=== PATIENT | male | born 1935 | race Caucasian/White ===

== ENCOUNTER 2021-07-12 21:41 | Inpatient (IN) | payer MEDICARE ==
[~2021-07-12] VITALS: Ht 182.9 cm; Wt 68.2 kg
[2021-07-12] MEDS ORDERED: acetaminophen 325mg tablet PO ONE (22:15)
[2021-07-12] MEDS ORDERED: normal saline 1000ml 1,000 ML IV ONE (22:15)
[2021-07-12] MEDS ORDERED: CefTRIAXone/D5W-Rocephin 1gm 50 ML IV ONE (22:15)
[2021-07-12] MEDS ORDERED: iohexol 300mg/ml 100ml inj. ONE (22:19)
[2021-07-12 23:03] LABS: BASOPHILS # (AUTO) 0.1 X10'3 (0-0.2); BASOPHILS % (AUTO) 0.5 % (0-1); EOSINOPHILS % (AUTO) 0 % (0-6); HEMOGLOBIN 12.7 g/dl (14.0-17.9); LYMPHOCYTES # (AUTO) 0.8 X10'3 (1.1-4.8); LYMPHOCYTES % (AUTO) 4.8 % (21-51); MEAN CORPUSCULAR HEMOGLOBIN 31.2 PG (27.0-31.0); MEAN CORPUSCULAR HGB CONC 33.3 g/dL (33.0-36.5); MEAN CORPUSCULAR VOLUME 93.8 FL (78-98); MEAN PLATELET VOLUME 9.2 FL (7.4-10.4); MONOCYTES % (AUTO) 5.5 % (2-12); NEUTROPHILS # (AUTO) 15.6 X10'3 (1.8-7.7); NEUTROPHILS % (AUTO) 89.2 % (42-75); PLATELET COUNT 220 X10'3 (140-440); RED BLOOD COUNT 4.06 X10'6 (4.70-6.10); WHITE BLOOD COUNT 17.5 X10'3 (4.5-11.0)
[2021-07-12 23:24] LABS: ALANINE AMINOTRANSFERASE 33 U/L (12-78); ALBUMIN 3.6 G/DL (3.4-5.0); ALBUMIN/GLOBULIN RATIO 0.9 (1.1-1.5); ALKALINE PHOSPHATASE 84 IU/L (46-116); ANION GAP 7 (8-16); ASPARTATE AMINO TRANSFERASE 20 U/L (10-37); BILIRUBIN,TOTAL 0.5 MG/DL (0.1-1.0); BLOOD UREA NITROGEN 27 MG/DL (7-18); BUN/CREATININE RATIO 24.5 (5.4-32.0); CALCIUM 10.4 MG/DL (8.5-10.1); CHLORIDE 104 MMOL/L (99-107); GLUCOSE 152 MG/DL (70-104); MAGNESIUM 2.4 MG/DL (1.5-2.4); POTASSIUM 4.3 MMOL/L (3.5-5.1); SODIUM 141 MMOL/L (135-145); TOTAL CARBON DIOXIDE 29.6 MMOL/L (24-32); TOTAL PROTEIN 7.8 G/DL (6.4-8.2); eGFR 64 ML/MIN
[2021-07-12 23:24] LABS: CLARITY,URINE SLIGHTLY CLOUDY (Clear); COLOR,URINE YELLOW (Yellow); PH,URINE 6.5 (4.8-8.0); UA COLLECTION TYPE FOLEY CATH
[2021-07-12 23:25] LABS: GLUCOSE, URINE NEGATIVE (Neg); KETONES,URINE NEGATIVE (Neg); OCCULT BLOOD,URINE MODERATE (Neg); PROTEIN,URINE NEGATIVE (Neg); UROBILINOGEN,URINE 0.2 E.U/dL (0.2-1.0)
[2021-07-12 23:26] LABS: BACTERIA,URINE 1+ /HPF (Neg); LEUKOCYTE ESTERASE ,URINE TRACE (Neg); NITRITES, URINE NEGATIVE (Neg); RBC,URINE 0-2 /HPF (0-2); SQUAMOUS EPITHELIAL CELL,UR FEW /LPF (FEW)
[2021-07-13] MEDS ORDERED: bisacodyl 10mg suppository rectal RC PRN (02:55)
[2021-07-13] MEDS ORDERED: diphenhydrAMINE 50 mg/ml inj IV PRN (02:55)
[2021-07-13] MEDS ORDERED: ondansetron/PF 4mg/2ml inj IV PRN (02:55)
[2021-07-13] MEDS: normal saline 1000ml 1,000 ML IV SCH ×2 (02:55→20:07)
[2021-07-13] MEDS ORDERED: magnesium hydroxide 30ml (MOM) UD suspension PO PRN (02:55)
[2021-07-13] MEDS ORDERED: HYDROcodone/acetaminophen 5mg/325mg tablet PO PRN (02:55)
[2021-07-13] MEDS ORDERED: ondansetron 4mg rapidly disintigrating tab PO PRN (02:55)
[2021-07-13] MEDS ORDERED: acetaminophen 325mg tablet PO PRN ×2 (02:55)
[2021-07-13] MEDS ORDERED: mag hydrox/Alum hydrox/simeth 30ml oral suspension PO PRN (02:55)
[2021-07-13] MEDS ORDERED: diphenhydrAMINE 25mg capsule PO PRN (02:55)
[2021-07-13] MEDS ORDERED: morphine 2 MG/ML inj. syringe IV PRN (02:55)
[2021-07-13] MEDS ORDERED: ALBUTEROL INHALER 1 PUFF/90 MCG INHALER IH PRN (03:00)
--- NOTE | 2021-07-13 03:38 | NUR ---
Patient appears to have dementia and does not answer question, but will verbally protest if uncomfortable. Pt unable to participate in his assessment and history.
[2021-07-13 05:10] LABS: HEMOGLOBIN A1C 6.2 % (4.5-6.2)
[2021-07-13 05:34] LABS: CREATINE KINASE 72 U/L (39-308); LIPASE 88 U/L (73-393); PHOSPHORUS 2.9 MG/DL (2.3-4.5)
--- NOTE | 2021-07-13 07:29 | NUR ---
SERGIO COE (SON) [phone]
[2021-07-13] MEDS ORDERED: dexamethasone 4mg/ml inj IV SCH ×2 (08:00→20:00)
--- NOTE | 2021-07-13 08:31 | NUR ---
RECEIVED REPORT FROM SUSAN SANCHEZ
[2021-07-13 08:35] LABS: PARTIAL THROMBOPLASTIN TIME 28 SECONDS (22-32)
[2021-07-13 09:23] VITALS: BP 123/69
[2021-07-13] MEDS: pantoprazole 40mg Tablet.DR PO SCH (09:31)
[2021-07-13] MEDS: docusate sod 100mg capsule PO SCH ×2 (09:31→23:06)
[2021-07-13] MEDS: enoxaparin 40mg/0.4ml syringe SUBCUT SCH (09:37)
--- NOTE | 2021-07-13 09:42 | NUR ---
SCANNER ON COMPUTER NOT SCANNING MEDS INTO [place], CHECKED ALL MEDS PRIOR TO ADMIN
[2021-07-13] MEDS: azithromycin/NS 500mg/250ml 250 ML IV SCH (10:46)
--- NOTE | 2021-07-13 10:50 | NUR ---
SCANNER ON COMPUTER NOT SCANNING MEDS INTO Utan AT THIS TIME, CHECKED MED PRIOR TO ADMIN
[2021-07-13] MEDS ORDERED: magnesium Cl slow-release 64mg tablet PO PRN (11:05)
[2021-07-13] MEDS ORDERED: potassium Cl 40MEQ/1/2NS 520ml 520 ML IV PRN (11:05)
[2021-07-13] MEDS ORDERED: magnesium 4gm in 100ml NS 100 ML IV PRN (11:05)
[2021-07-13] MEDS ORDERED: potassium Cl 20 mEq SR tablet PO PRN ×2 (11:05)
[2021-07-13] MEDS ORDERED: NO HOME MEDS (11:59)
[2021-07-13 14:00] VITALS: BP 115/60
--- NOTE | 2021-07-13 15:43 | NUR ---
pt just woke up and started talking, pt is very confused and trying to climb out to bed, pt near nursing station, continue frequent rounding
--- NOTE | 2021-07-13 18:27 | NUR ---
gave report november,
[2021-07-13 18:30] VITALS: BP 108/75
[2021-07-13] MEDS: K and/or MAG REPLACEMENT MC SCH (20:00)
[2021-07-13 22:00] VITALS: BP 97/55
[2021-07-13] MEDS: dexamethasone 6 MG in D5W 100ml IV soln IV SCH (22:58)
[2021-07-13] MEDS: lactobacillus rhamnosus 10,000 MMU CELLS/CAPSULE PO SCH (23:06)
[2021-07-13] MEDS: CefTRIAXone/D5W-Rocephin 1gm 50 ML IV SCH (23:21)
[2021-07-14 02:00] VITALS: BP 114/68
[2021-07-14 06:00] VITALS: BP 91/49
[2021-07-14 07:06] LABS: BASOPHILS % (AUTO) 0.1 % (0-1); EOSINOPHILS % (AUTO) 0 % (0-6); HEMATOCRIT 35.5 % (42.0-52.0); HEMOGLOBIN 11.9 g/dl (14.0-17.9); LYMPHOCYTES # (AUTO) 0.9 X10'3 (1.1-4.8); LYMPHOCYTES % (AUTO) 8.6 % (21-51); MEAN CORPUSCULAR HEMOGLOBIN 31.6 PG (27.0-31.0); MEAN CORPUSCULAR HGB CONC 33.6 g/dL (33.0-36.5); MEAN CORPUSCULAR VOLUME 94.1 FL (78-98); MEAN PLATELET VOLUME 9.1 FL (7.4-10.4); MONOCYTES # (AUTO) 0.2 X10'3 (0-0.9); NEUTROPHILS # (AUTO) 9.7 X10'3 (1.8-7.7); NEUTROPHILS % (AUTO) 89.3 % (42-75); PLATELET COUNT 213 X10'3 (140-440); RED BLOOD COUNT 3.77 X10'6 (4.70-6.10); RED CELL DISTRIBUTION WIDTH 17.2 % (11.5-14.5); WHITE BLOOD COUNT 10.9 X10'3 (4.5-11.0)
[2021-07-14 07:21] LABS: D-DIMER 0.54 MG/L FEU (0-0.50)
[2021-07-14] MEDS: K and/or MAG REPLACEMENT MC SCH ×2 (08:00→19:10)
[2021-07-14 08:01] LABS: ALANINE AMINOTRANSFERASE 17 U/L (12-78); ALBUMIN 2.5 G/DL (3.4-5.0); ALBUMIN/GLOBULIN RATIO 0.6 (1.1-1.5); ALKALINE PHOSPHATASE 68 IU/L (46-116); ANION GAP 8 (8-16); ASPARTATE AMINO TRANSFERASE 15 U/L (10-37); BILIRUBIN,TOTAL 0.4 MG/DL (0.1-1.0); BLOOD UREA NITROGEN 16 MG/DL (7-18); BUN/CREATININE RATIO 20.5 (5.4-32.0); C-REACTIVE PROTEIN 7.13 MG/DL (0.0-0.5); CALCIUM 9.2 MG/DL (8.5-10.1); CHLORIDE 108 MMOL/L (99-107); CHOLESTEROL 157 MG/DL (0-200); CREATININE 0.78 MG/DL (0.60-1.10); GLUCOSE 164 MG/DL (70-104); HDL CHOLESTEROL 55 MG/DL (35-60); LACTATE DEHYDROGENASE 157 U/L (85-227); MAGNESIUM 2.1 MG/DL (1.5-2.4); PHOSPHORUS 2.7 MG/DL (2.3-4.5); POTASSIUM 4.4 MMOL/L (3.5-5.1); SODIUM 143 MMOL/L (135-145); TOTAL CARBON DIOXIDE 27.4 MMOL/L (24-32); TOTAL PROTEIN 6.4 G/DL (6.4-8.2); eGFR > 90 ML/MIN
[2021-07-14 08:02] LABS: CHOL/HDL RATIO 2.9 (0.00-4.99); LDL CHOLESTEROL 74 MG/DL (50-100); TRIGLYCERIDES 68 MG/DL (20-135)
--- NOTE | 2021-07-14 08:57 | NUR ---
Jose Alberto consult: Noted score of 12, no open wounds or edema noted. Will continue to monitor. Addendum: 07/14/21 at [address] Amended: Links added.
[2021-07-14] MEDS: lactobacillus rhamnosus 10,000 MMU CELLS/CAPSULE PO SCH ×2 (10:38→19:10)
[2021-07-14] MEDS: docusate sod 100mg capsule PO SCH ×2 (10:38→19:10)
[2021-07-14] MEDS: pantoprazole 40mg Tablet.DR PO SCH (10:38)
[2021-07-14] MEDS: dexamethasone 6 MG in D5W 100ml IV soln IV SCH ×2 (10:39→19:10)
[2021-07-14 11:00] VITALS: BP 96/36
[2021-07-14] MEDS: enoxaparin 40mg/0.4ml syringe SUBCUT SCH (11:04)
[2021-07-14] MEDS: azithromycin/NS 500mg/250ml 250 ML IV SCH (11:08)
--- NOTE | 2021-07-14 12:43 | NUR ---
Page Sent PAGER ID: [phone] MESSAGE: LETI [id number]: [id number] YONATHAN CLAUDIO...PT 24HR TELE UP, PT IN NSR, DO YOU WANT TO DC OR CONTINUE TELE?
[2021-07-14 18:00] VITALS: BP 137/95
--- NOTE | 2021-07-14 18:38 | NUR ---
Problems reprioritized. Patient report given, questions answered & plan of care reviewed with SUSAN Duran.
[2021-07-14] MEDS: CefTRIAXone/D5W-Rocephin 1gm 50 ML IV SCH (21:51)
[2021-07-14 22:00] VITALS: BP 149/92
[2021-07-15 02:00] VITALS: BP 156/76
[2021-07-15 06:10] VITALS: BP 134/77
--- NOTE | 2021-07-15 06:30 | NUR ---
Patient in room [facility] 4020. I have received report from Roger DAVIS and had the opportunity to ask questions and assume patient care.
[2021-07-15 07:06] LABS: BASOPHILS % (AUTO) 0.1 % (0-1); EOSINOPHILS % (AUTO) 0 % (0-6); HEMATOCRIT 37.3 % (42.0-52.0); HEMOGLOBIN 12.7 g/dl (14.0-17.9); LYMPHOCYTES # (AUTO) 0.9 X10'3 (1.1-4.8); LYMPHOCYTES % (AUTO) 9.6 % (21-51); MEAN CORPUSCULAR HEMOGLOBIN 31.6 PG (27.0-31.0); MEAN PLATELET VOLUME 9.2 FL (7.4-10.4); MONOCYTES # (AUTO) 0.6 X10'3 (0-0.9); MONOCYTES % (AUTO) 5.9 % (2-12); NEUTROPHILS # (AUTO) 8.1 X10'3 (1.8-7.7); NEUTROPHILS % (AUTO) 84.4 % (42-75); PLATELET COUNT 236 X10'3 (140-440); RED BLOOD COUNT 4.01 X10'6 (4.70-6.10); RED CELL DISTRIBUTION WIDTH 16.7 % (11.5-14.5); WHITE BLOOD COUNT 9.6 X10'3 (4.5-11.0)
[2021-07-15 07:12] LABS: D-DIMER 0.48 MG/L FEU (0-0.50)
[2021-07-15 07:18] LABS: ALANINE AMINOTRANSFERASE 24 U/L (12-78); ALBUMIN 2.7 G/DL (3.4-5.0); ALBUMIN/GLOBULIN RATIO 0.7 (1.1-1.5); ALKALINE PHOSPHATASE 69 IU/L (46-116); ANION GAP 6 (8-16); ASPARTATE AMINO TRANSFERASE 19 U/L (10-37); BILIRUBIN,TOTAL 0.3 MG/DL (0.1-1.0); BLOOD UREA NITROGEN 20 MG/DL (7-18); C-REACTIVE PROTEIN 3.45 MG/DL (0.0-0.5); CALCIUM 9.7 MG/DL (8.5-10.1); CHLORIDE 107 MMOL/L (99-107); CREATININE 0.77 MG/DL (0.60-1.10); GLUCOSE 141 MG/DL (70-104); LACTATE DEHYDROGENASE 159 U/L (85-227); MAGNESIUM 2.3 MG/DL (1.5-2.4); PHOSPHORUS 3.1 MG/DL (2.3-4.5); SODIUM 139 MMOL/L (135-145); TOTAL CARBON DIOXIDE 25.9 MMOL/L (24-32); TOTAL PROTEIN 6.7 G/DL (6.4-8.2); eGFR > 90 ML/MIN
--- NOTE | 2021-07-15 07:30 | NUR ---
Patient report given to Beck DAVIS
[2021-07-15] MEDS: dexamethasone 6 MG in D5W 100ml IV soln IV SCH (08:14)
[2021-07-15] MEDS: azithromycin/NS 500mg/250ml 250 ML IV SCH (08:14)
[2021-07-15] MEDS: lactobacillus rhamnosus 10,000 MMU CELLS/CAPSULE PO SCH (08:14)
[2021-07-15] MEDS: enoxaparin 40mg/0.4ml syringe SUBCUT SCH (08:14)
[2021-07-15] MEDS: pantoprazole 40mg Tablet.DR PO SCH (08:15)
[2021-07-15] MEDS: K and/or MAG REPLACEMENT MC SCH (08:15)
[2021-07-15] MEDS: docusate sod 100mg capsule PO SCH (08:16)
[2021-07-15] MEDS ORDERED: LORazepam 2 mg/ml vial IV PRN (08:30)
[2021-07-15 09:56] LABS: % FREE PSA 15.3 % (.); PSA, FREE 3.06 ng/mL
[2021-07-15 10:00] VITALS: BP 107/56
[2021-07-15] MEDS ORDERED: ASPI-1265 PO (15:29)
[2021-07-15] MEDS ORDERED: PANT40TA54 PO (15:29)
[2021-07-15] MEDS ORDERED: DEXA6TAB PO (15:29)
[2021-07-15] MEDS ORDERED: ALBU8.5H17 INH (15:29)
[2021-07-15] MEDS ORDERED: CEFD300C3 PO (15:29)
[2021-07-15] MEDS ORDERED: LACT1CAP26 PO (15:29)
== END 2021-07-15 18:10 | disposition home or self-care (01) | DRG 177 ==
LOC: ER 21:41 → ED HOLD 07-13 02:57 → EDBEDREQ 07-13 05:30 → ORTHO 4S 07-13 08:55
PROVIDERS: ADMIT Family Medicine; ATTEND Family Medicine
PROC: BW211ZZ Computerized Tomography (CT Scan) of Abdomen and Pelvis using Low Osmolar Contrast (ICD-10-PCS; principal; 2021-07-13)
DX: U07.1 COVID-19 (principal); J12.82 Pneumonia due to coronavirus disease 2019; G93.41 Metabolic encephalopathy; J44.0 Chronic obstructive pulmonary disease with (acute) lower respiratory infection; J44.1 Chronic obstructive pulmonary disease with (acute) exacerbation; K56.7 Ileus, unspecified; N39.0 Urinary tract infection, site not specified; F03.90 Unspecified dementia, unspecified severity, without behavioral disturbance, psychotic disturbance, mood disturbance, and anxiety; I10 Essential (primary) hypertension; N40.1 Benign prostatic hyperplasia with lower urinary tract symptoms; R32 Unspecified urinary incontinence; R33.8 Other retention of urine
CPT/HCPCS: 36415; 70450; 71045; 73030; 74177; 80053; 80061; 81001; 82550; 83036; 83605; 83615; 83690; 83735; 83880; 84100; 84145; 84153; 84154; 84443; 84484; 85025; 85379; 85610; 85730; 86140; 87040; 87077; 87081; 87088; 87186; 87635; 92508; 92616; 93005; 99285; C9803; G0378; J0456; J0696; J1100; J1650; J7030; J7060; Q9967

== ENCOUNTER 2021-07-17 04:15 | Emergency (ER) | payer MEDICARE ==
[~2021-07-17] VITALS: Ht 167.6 cm; Wt 68.0 kg
[~2021-07-17 04:15] MED LIST: ALBU8.5H17 INH; ASPI-1265 PO; CEFD300C3 PO; DEXA6TAB PO; LACT1CAP26 PO; PANT40TA54 PO
[2021-07-17 04:42] VITALS: BP 134/84
[2021-07-17] MEDS ORDERED: LIDOcaine 2% 10ml TOPICAL JELLY (Urojet) TP ONE (05:35)
[2021-07-17] MEDS ORDERED: CEFD300C3 PO (06:01)
[2021-07-17] MEDS ORDERED: FLO0.4C PO (06:01)
[2021-07-17 07:12] LABS: BASOPHILS % (AUTO) 0.5 % (0-1); EOSINOPHILS % (AUTO) 0.4 % (0-6); HEMATOCRIT 39.8 % (42.0-52.0); HEMOGLOBIN 13.3 g/dl (14.0-17.9); LYMPHOCYTES # (AUTO) 1.2 X10'3 (1.1-4.8); LYMPHOCYTES % (AUTO) 15.7 % (21-51); MEAN CORPUSCULAR HEMOGLOBIN 31.6 PG (27.0-31.0); MEAN CORPUSCULAR HGB CONC 33.5 g/dL (33.0-36.5); MEAN CORPUSCULAR VOLUME 94.5 FL (78-98); MEAN PLATELET VOLUME 8.7 FL (7.4-10.4); MONOCYTES # (AUTO) 0.6 X10'3 (0-0.9); MONOCYTES % (AUTO) 8.8 % (2-12); NEUTROPHILS # (AUTO) 5.5 X10'3 (1.8-7.7); NEUTROPHILS % (AUTO) 74.6 % (42-75); PLATELET COUNT 246 X10'3 (140-440); RED BLOOD COUNT 4.21 X10'6 (4.70-6.10); RED CELL DISTRIBUTION WIDTH 16.9 % (11.5-14.5); WHITE BLOOD COUNT 7.3 X10'3 (4.5-11.0)
[2021-07-17 07:27] LABS: ALANINE AMINOTRANSFERASE 37 U/L (12-78); ALBUMIN 3.3 G/DL (3.4-5.0); ALBUMIN/GLOBULIN RATIO 0.8 (1.1-1.5); ALKALINE PHOSPHATASE 83 IU/L (46-116); ANION GAP 9 (8-16); ASPARTATE AMINO TRANSFERASE 18 U/L (10-37); BILIRUBIN,TOTAL 0.5 MG/DL (0.1-1.0); BLOOD UREA NITROGEN 24 MG/DL (7-18); BUN/CREATININE RATIO 28.2 (5.4-32.0); CALCIUM 9.7 MG/DL (8.5-10.1); CHLORIDE 104 MMOL/L (99-107); CREATININE 0.85 MG/DL (0.60-1.10); GLUCOSE 122 MG/DL (70-104); LIPASE 145 U/L (73-393); POTASSIUM 3.8 MMOL/L (3.5-5.1); SODIUM 140 MMOL/L (135-145); TOTAL CARBON DIOXIDE 27.3 MMOL/L (24-32); TOTAL PROTEIN 7.3 G/DL (6.4-8.2); eGFR 86 ML/MIN
[2021-07-17 07:44] LABS: CLARITY,URINE CLEAR (Clear); COLOR,URINE YELLOW (Yellow); GLUCOSE, URINE NEGATIVE (Neg); KETONES,URINE NEGATIVE (Neg); LEUKOCYTE ESTERASE ,URINE NEGATIVE (Neg); NITRITES, URINE NEGATIVE (Neg); OCCULT BLOOD,URINE NEGATIVE (Neg); PROTEIN,URINE NEGATIVE (Neg); UA COLLECTION TYPE FOLEY CATH; UROBILINOGEN,URINE 0.2 E.U/dL (0.2-1.0)
--- NOTE | 2021-07-17 08:40 | NUR ---
pt cleaned from .
== END 2021-07-17 09:13 | disposition home or self-care (01) ==
LOC: ER 04:15
DX: U07.1 COVID-19 (principal); R33.9 Retention of urine, unspecified; N39.0 Urinary tract infection, site not specified; R10.84 Generalized abdominal pain; Z79.82 Long term (current) use of aspirin; Z79.899 Other long term (current) drug therapy
CPT/HCPCS: 36415; 51702; 80053; 81003; 83690; 85025; 99284

== ENCOUNTER 2021-07-22 20:14 | Emergency (ER) | payer MEDICARE ==
[~2021-07-22] VITALS: Ht 182.9 cm; Wt 65.0 kg
[~2021-07-22 20:14] MED LIST changes: +FLO0.4C PO
[2021-07-22] MEDS: LIDOcaine 2% 10ml TOPICAL JELLY (Urojet) TP ONE (20:45)
[2021-07-22 21:28] LABS: BASOPHILS % (AUTO) 0.5 % (0-1); EOSINOPHILS # (AUTO) 0.1 X10'3 (0-0.9); EOSINOPHILS % (AUTO) 1.5 % (0-6); HEMATOCRIT 35.2 % (42.0-52.0); LYMPHOCYTES # (AUTO) 1.5 X10'3 (1.1-4.8); LYMPHOCYTES % (AUTO) 20.7 % (21-51); MEAN CORPUSCULAR HGB CONC 33.9 g/dL (33.0-36.5); MEAN CORPUSCULAR VOLUME 94.2 FL (78-98); MEAN PLATELET VOLUME 8.7 FL (7.4-10.4); MONOCYTES # (AUTO) 0.7 X10'3 (0-0.9); NEUTROPHILS # (AUTO) 4.8 X10'3 (1.8-7.7); NEUTROPHILS % (AUTO) 67.3 % (42-75); PLATELET COUNT 274 X10'3 (140-440); RED BLOOD COUNT 3.74 X10'6 (4.70-6.10); RED CELL DISTRIBUTION WIDTH 16.8 % (11.5-14.5); WHITE BLOOD COUNT 7.1 X10'3 (4.5-11.0)
[2021-07-22 21:40] LABS: COLOR,URINE YELLOW (Yellow); GLUCOSE, URINE NEGATIVE (Neg); KETONES,URINE NEGATIVE (Neg); LEUKOCYTE ESTERASE ,URINE NEGATIVE (Neg); NITRITES, URINE NEGATIVE (Neg); PROTEIN,URINE NEGATIVE (Neg); UA COLLECTION TYPE FOLEY CATH; UROBILINOGEN,URINE 0.2 E.U/dL (0.2-1.0)
[2021-07-22 21:41] LABS: CLARITY,URINE SLIGHTLY CLOUDY (Clear)
[2021-07-22 21:43] LABS: OCCULT BLOOD,URINE TRACE-INTACT (Neg)
[2021-07-22 21:44] LABS: ALANINE AMINOTRANSFERASE 31 U/L (12-78); ALBUMIN 2.9 G/DL (3.4-5.0); ALBUMIN/GLOBULIN RATIO 0.8 (1.1-1.5); ALKALINE PHOSPHATASE 74 IU/L (46-116); ANION GAP 4 (8-16); ASPARTATE AMINO TRANSFERASE 15 U/L (10-37); BILIRUBIN,TOTAL 0.2 MG/DL (0.1-1.0); BLOOD UREA NITROGEN 25 MG/DL (7-18); BUN/CREATININE RATIO 23.6 (5.4-32.0); CALCIUM 9.9 MG/DL (8.5-10.1); CHLORIDE 105 MMOL/L (99-107); CREATININE 1.06 MG/DL (0.60-1.10); GLUCOSE 142 MG/DL (70-104); POTASSIUM 4.9 MMOL/L (3.5-5.1); SODIUM 140 MMOL/L (135-145); TOTAL CARBON DIOXIDE 30.6 MMOL/L (24-32); TOTAL PROTEIN 6.5 G/DL (6.4-8.2); eGFR 66 ML/MIN
[2021-07-22 21:44] LABS: RBC,URINE 20-50 /HPF (0-2)
[2021-07-22 21:45] LABS: BACTERIA,URINE 1+ /HPF (Neg); CAL OXALATE CRYSTALS 2+ /HPF (NEGATIVE); SQUAMOUS EPITHELIAL CELL,UR FEW /LPF (FEW)
[2021-07-23 00:23] VITALS: BP 134/83
== END 2021-07-23 00:17 | disposition home or self-care (01) ==
LOC: ER 20:15
DX: R33.9 Retention of urine, unspecified (principal); R14.0 Abdominal distension (gaseous); R10.30 Lower abdominal pain, unspecified; F03.91 Unspecified dementia, unspecified severity, with behavioral disturbance; Z79.82 Long term (current) use of aspirin; Z79.899 Other long term (current) drug therapy; Z86.16 Personal history of COVID-19; Z87.440 Personal history of urinary (tract) infections
CPT/HCPCS: 36415; 51702; 80053; 81001; 85025; 87088; 99284

== ENCOUNTER 2021-09-22 10:58 | Emergency (ER) | payer MEDICARE ==
[~2021-09-22] VITALS: Ht 167.6 cm; Wt 50.0 kg
[~2021-09-22 10:58] MED LIST changes: -ASPI-1265 PO; -CEFD300C3 PO; -DEXA6TAB PO; -FLO0.4C PO; -LACT1CAP26 PO; +LEVO500T90 PO; +PANT-47 PO; -PANT40TA54 PO
[2021-09-22 11:11] VITALS: BP 113/63
[2021-09-22 11:43] LABS: BASOPHILS # (AUTO) 0.1 X10'3 (0-0.2); BASOPHILS % (AUTO) 0.8 % (0-1); EOSINOPHILS # (AUTO) 0.2 X10'3 (0-0.9); EOSINOPHILS % (AUTO) 2.3 % (0-6); HEMATOCRIT 37.8 % (42.0-52.0); HEMOGLOBIN 12.7 g/dl (14.0-17.9); LYMPHOCYTES # (AUTO) 1.6 X10'3 (1.1-4.8); LYMPHOCYTES % (AUTO) 23.2 % (21-51); MEAN CORPUSCULAR HEMOGLOBIN 31.9 PG (27.0-31.0); MEAN CORPUSCULAR HGB CONC 33.7 g/dL (33.0-36.5); MEAN CORPUSCULAR VOLUME 94.8 FL (78-98); MEAN PLATELET VOLUME 8.5 FL (7.4-10.4); MONOCYTES # (AUTO) 0.6 X10'3 (0-0.9); MONOCYTES % (AUTO) 8.9 % (2-12); NEUTROPHILS # (AUTO) 4.6 X10'3 (1.8-7.7); NEUTROPHILS % (AUTO) 64.8 % (42-75); PLATELET COUNT 233 X10'3 (140-440); RED BLOOD COUNT 3.99 X10'6 (4.70-6.10); RED CELL DISTRIBUTION WIDTH 14.1 % (11.5-14.5)
[2021-09-22 12:00] LABS: ALANINE AMINOTRANSFERASE 22 U/L (12-78); ALBUMIN 2.9 G/DL (3.4-5.0); ALBUMIN/GLOBULIN RATIO 0.7 (1.1-1.5); ALKALINE PHOSPHATASE 88 IU/L (46-116); ANION GAP 2 (8-16); ASPARTATE AMINO TRANSFERASE 14 U/L (10-37); BILIRUBIN,TOTAL 0.2 MG/DL (0.1-1.0); BLOOD UREA NITROGEN 20 MG/DL (7-18); BUN/CREATININE RATIO 22.2 (5.4-32.0); CHLORIDE 110 MMOL/L (99-107); GLUCOSE 97 MG/DL (70-104); POTASSIUM 4.1 MMOL/L (3.5-5.1); SODIUM 144 MMOL/L (135-145); TOTAL CARBON DIOXIDE 32.3 MMOL/L (24-32); TOTAL PROTEIN 7.1 G/DL (6.4-8.2); eGFR 80 ML/MIN
[2021-09-22 16:14] LABS: CLARITY,URINE CLOUDY (Clear); COLOR,URINE YELLOW (Yellow); GLUCOSE, URINE NEGATIVE (Neg); KETONES,URINE NEGATIVE (Neg); LEUKOCYTE ESTERASE ,URINE LARGE (Neg); NITRITES, URINE NEGATIVE (Neg); OCCULT BLOOD,URINE SMALL (Neg); PROTEIN,URINE NEGATIVE (Neg); UROBILINOGEN,URINE 0.2 E.U/dL (0.2-1.0)
[2021-09-22 16:16] LABS: UA COLLECTION TYPE FOLEY CATH
[2021-09-22 16:20] LABS: BACTERIA,URINE 3+ /HPF (Neg); WBC,URINE TNTC /HPF (0-4)
[2021-09-22 16:21] LABS: SQUAMOUS EPITHELIAL CELL,UR NONE SEEN /LPF (FEW)
[2021-09-22 16:22] LABS: AMORPHOUS URATES 1+
== END 2021-09-22 20:29 | disposition left against medical advice (07) ==
LOC: ER 10:58
DX: T83.83XA Hemorrhage due to genitourinary prosthetic devices, implants and grafts, initial encounter (principal); Z87.440 Personal history of urinary (tract) infections; Y92.89 Other specified places as the place of occurrence of the external cause
CPT/HCPCS: 36415; 80053; 81001; 85025; 85610; 87077; 87088; 87186; 99283

== ENCOUNTER 2021-11-17 13:13 | Emergency (ER) | payer MEDICARE ==
[~2021-11-17] VITALS: Ht 182.9 cm; Wt 84.1 kg
[2021-11-17 14:28] LABS: BASOPHILS % (AUTO) 0.3 % (0-1); EOSINOPHILS # (AUTO) 0.1 X10'3 (0-0.9); EOSINOPHILS % (AUTO) 0.9 % (0-6); HEMATOCRIT 36.6 % (42.0-52.0); HEMOGLOBIN 12.1 g/dl (14.0-17.9); LYMPHOCYTES % (AUTO) 9.9 % (21-51); MEAN CORPUSCULAR VOLUME 93.9 FL (78-98); MEAN PLATELET VOLUME 8.7 FL (7.4-10.4); MONOCYTES # (AUTO) 0.7 X10'3 (0-0.9); MONOCYTES % (AUTO) 6.7 % (2-12); NEUTROPHILS # (AUTO) 8.6 X10'3 (1.8-7.7); NEUTROPHILS % (AUTO) 82.2 % (42-75); PLATELET COUNT 234 X10'3 (140-440); RED BLOOD COUNT 3.89 X10'6 (4.70-6.10); RED CELL DISTRIBUTION WIDTH 16.3 % (11.5-14.5); WHITE BLOOD COUNT 10.5 X10'3 (4.5-11.0)
--- NOTE | 2021-11-17 14:34 | NUR ---
Germán RN placed arzola and pt had 700 ml out. Abdomen less distended. VS stable
[2021-11-17 14:54] LABS: ALANINE AMINOTRANSFERASE 21 U/L (12-78); ALBUMIN 3.3 G/DL (3.4-5.0); ALBUMIN/GLOBULIN RATIO 0.8 (1.1-1.5); ALKALINE PHOSPHATASE 81 IU/L (46-116); ANION GAP 10 (8-16); ASPARTATE AMINO TRANSFERASE 14 U/L (10-37); BILIRUBIN,TOTAL 0.3 MG/DL (0.1-1.0); BLOOD UREA NITROGEN 29 MG/DL (7-18); BUN/CREATININE RATIO 37.2 (5.4-32.0); CALCIUM 10.8 MG/DL (8.5-10.1); CHLORIDE 106 MMOL/L (99-107); CREATININE 0.78 MG/DL (0.60-1.10); GLUCOSE 127 MG/DL (70-104); POTASSIUM 4.6 MMOL/L (3.5-5.1); SODIUM 146 MMOL/L (135-145); TOTAL CARBON DIOXIDE 30.2 MMOL/L (24-32); TOTAL PROTEIN 7.3 G/DL (6.4-8.2); eGFR > 90 ML/MIN
--- NOTE | 2021-11-17 14:55 | NUR ---
Total of 1200ml UA in arzola at this time.
--- NOTE | 2021-11-17 15:14 | NUR ---
Pt sitting up in bed. Unable to understand what is happening and can't communicate well.
--- NOTE | 2021-11-17 15:19 | NUR ---
Pt sitting up in bed, confused, asking for help to urinate. Explained pt has a arzola in and can pee. Pt not able to understand.
[2021-11-17 16:35] LABS: CLARITY,URINE CLOUDY (Clear); COLOR,URINE YELLOW (Yellow); GLUCOSE, URINE NEGATIVE (Neg); KETONES,URINE NEGATIVE (Neg); LEUKOCYTE ESTERASE ,URINE LARGE (Neg); NITRITES, URINE POSITIVE (Neg); OCCULT BLOOD,URINE LARGE (Neg); PROTEIN,URINE NEGATIVE (Neg); UROBILINOGEN,URINE 0.2 E.U/dL (0.2-1.0)
[2021-11-17 16:54] LABS: UA COLLECTION TYPE NON-SPECIFIED
[2021-11-17 16:58] LABS: BACTERIA,URINE 2+ /HPF (Neg); WBC,URINE 20-30 /HPF (0-4)
[2021-11-17 16:59] LABS: SQUAMOUS EPITHELIAL CELL,UR FEW /LPF (FEW)
[2021-11-17] MEDS ORDERED: cephalexin 250mg capsule PO ONE (17:05)
--- NOTE | 2021-11-17 18:45 | NUR ---
Pt. d/c to home at 1710; Keflex po capsules ordered; however, unsure if pt is able to swallow per SUSAN Pulliam.
--- NOTE | 2021-11-17 18:50 | NUR ---
spoke with [id number], Sabine Nuñez , who states, pt. prefers liquid meds., [facility] [address] Sabine states she'll be coming by to picker pt.
[2021-11-17] MEDS ORDERED: KEF125L PO (19:01)
--- NOTE | 2021-11-17 19:06 | NUR ---
[id number] here to get pt home.
[2021-11-17 19:22] VITALS: BP 141/86
--- NOTE | 2021-11-17 19:22 | NUR ---
1300 CC URINE OUTPUT
== END 2021-11-17 19:27 | disposition home or self-care (01) ==
LOC: ER 13:13
DX: T83.098A Other mechanical complication of other urinary catheter, initial encounter (principal); R33.9 Retention of urine, unspecified; N39.0 Urinary tract infection, site not specified; Z79.2 Long term (current) use of antibiotics; Z79.899 Other long term (current) drug therapy; Y84.6 Urinary catheterization as the cause of abnormal reaction of the patient, or of later complication, without mention of misadventure at the time of the procedure
CPT/HCPCS: 36415; 51702; 80053; 81001; 85025; 87088; 99284